=== PATIENT | male | born 1995 | race African-American/Black ===

== ENCOUNTER 2016-06-03 02:36 | Emergency (ER) | payer OTHER ==
[2016-02-12 12:06] VITALS: BP 126/61
[2016-06-03] MEDS ORDERED: IBUP-1007 PO (03:24)
--- NOTE | 2016-06-03 03:24 | PHYS DOC ---
Past Medical History Past Medical History: Other Additional Past Medical Histor: seasonal allergies Past Surgical History: Other Additional Past Surgical Histo: abd hernia repair Alcohol Use: None Drug Use: None Adult General Chief Complaint Chief Complaint: Congestion HPI HPI Patient is a 20 year old male who presents here today complaining of chest pain and a whitish greenish productive cough for 2 days. Patient reports she been nauseous with occasional vomiting. Patient has any fevers shakes chills. Patient denies any abdominal pain. Patient has a dysuria frequency or urgency. Patient has no past medical history is otherwise healthy. Patient's physical exam was unremarkable. Patient's lungs were clear with no wheezing rales or rhonchi. Patient's abdomen was soft nontender. Patient's oropharynx was normal without any erythema or exudates. Patient's TMs are clear. Producible tenderness to palpation to his mid sternum. Patient reports his whole family has the same type symptoms. Review of Systems Review of Systems Constitutional: Denies fever or chills [] Eyes: Denies change in visual acuity, redness, or eye pain [] All other review systems are negative except as documented in the history of present illness portion. Allergies Allergies Allergies Coded Allergies Type Severity Reaction Last Updated Verified No Known Drug Allergies 02/12/16 No Physical Exam Physical Exam Constitutional: Well developed, well nourished, no acute distress, non-toxic appearance. [] HENT: Normocephalic, atraumatic, bilateral external ears normal, oropharynx moist, no oral exudates, nose normal. [] Eyes: PERRLA, EOMI, conjunctiva normal, no discharge. [] Neck: Normal range of motion, no tenderness, supple, no stridor. [] Cardiovascular:Heart rate regular rhythm, no murmur [] Lungs & Thorax: Bilateral breath sounds clear to auscultation tenderness to palpation to his anterior chest wall. [] Abdomen: Bowel sounds normal, soft, no tenderness, no masses, no pulsatile masses. [] Skin: Warm, dry, no erythema, no rash. [] Back: No tenderness, no CVA tenderness. [] Extremities: No tenderness, no cyanosis, no clubbing, ROM intact, no edema. [] Neurologic: Alert and oriented X 3, normal motor function, normal sensory function, no focal deficits noted. [] Psychologic: Affect normal, judgement normal, mood normal. [] EKG EKG [] Radiology/Procedures Radiology/Procedures [] Impressions: Patient presents with likely viral illness with pleurisy. Patient discharged home with ibuprofen rest liquids. Patient does not present with signs and symptoms concerning for influenza. Course & Med Decision Making Course & Med Decision Making Pertinent Labs and Imaging studies reviewed. (See chart for details) [] Dragon Disclaimer Dragon Disclaimer This electronic medical record was generated, in whole or in part, using a voice recognition dictation system. Departure Departure Impression: Primary Impression: Upper respiratory infection Additional Impression: Pleurisy Disposition: HOME, SELF-CARE Condition: IMPROVED Referrals: JUVE STINSON (PCP) Patient Instructions: Upper Respiratory Infection, Adult Scripts Ibuprofen 600 Mg [id number] Mg PO PRN Q6HRS PRN INFLAMMATION #20 TAB Prov:RAMSEY TRIPP MD 06/03/16 Problem Qualifiers RAMSEY TRIPP MD Jun 03, 2016 03:24
[2016-06-03] MEDS ORDERED: IBUPROFEN 600 MG TABLET. PO ONE (04:00)
== END 2016-06-03 03:38 | disposition home or self-care (01) ==
LOC: ER 02:36
DX: J06.9 Acute upper respiratory infection, unspecified (principal); R09.1 Pleurisy
CPT/HCPCS: 99282

== ENCOUNTER 2016-11-22 15:46 | Emergency (ER) | payer OTHER ==
[~2016-11-22 15:46] MED LIST: IBUP-1007 PO
[2016-11-22 16:02] VITALS: BP 141/82
--- NOTE | 2016-11-22 16:19 | RAD ---
Ankle plain films Indication: 21-year-old male with pain in the left ankle status post fall and twisting. Technique: 3 views of the left ankle Comparison: None Findings: No acute fracture or dislocation. Ankle mortise is intact. No soft tissue abnormality. Impression: No acute fracture or dislocation.
[2016-11-22] MEDS ORDERED: TRAM-48 PO (16:33)
--- NOTE | 2016-11-22 16:34 | PHYS DOC ---
Past Medical History Past Medical History: Other Additional Past Medical Histor: seasonal allergies Past Surgical History: Other Additional Past Surgical Histo: abd hernia repair Alcohol Use: None Drug Use: None Adult General Chief Complaint Chief Complaint: ANKLE PROBLEM HPI HPI Patient is a 21 year old male who presents with left medial anterior and lateral ankle pain that began this morning when he was acting like a Katie trying to kick a ceiling fan. He states he twisted his left ankle. Patient states his pain is moderate worse on ambulation. Patient denies any loss of consciousness. Review of Systems Review of Systems Constitutional: Denies fever or chills [] Musculoskeletal: Left ankle pain Integument: Denies rash or skin lesions [] Neurologic: Denies headache, focal weakness or sensory changes [] Allergies Allergies Allergies Coded Allergies Type Severity Reaction Last Updated Verified No Known Drug Allergies 02/12/16 No Physical Exam Physical Exam Constitutional: Well developed, well nourished, no acute distress, non-toxic appearance. [] Skin: Warm, dry, no erythema, no rash. [] Back: No tenderness, no CVA tenderness. [] Extremities: Left ankle with mild soft tissue swelling. Tenderness diffusely throughout the ankle. Full range of motion. +2 left pedal pulse. Cap refill less than 2 seconds left toes. Sensation intact to the left lower extremity. Neurologic: Alert and oriented X 3, normal motor function, normal sensory function, no focal deficits noted. [] Psychologic: Affect normal, judgement normal, mood normal. [] Current Patient Data Vital Signs Vital Signs Date Time Temp Pulse Resp B/P (MAP) Pulse Ox O2 Delivery O2 Flow Rate FiO2 11/22/16 16:02 98.2 63 20 99 Room Air 98.2 EKG EKG [] Radiology/Procedures Radiology/Procedures [] Course & Med Decision Making Course & Med Decision Making Pertinent Labs and Imaging studies reviewed. (See chart for details) Patient is in the ED with left ankle pain after twisting the ankle. Left ankle x -rays interpreted by radiologist are negative for any acute findings. Patient probably has an ankle sprain. Aircast applied to the left ankle by the Ed RN, neurovascular exam done by me is normal. Ice elevation encouraged. Discharged with Ultram. Follow-up with orthopedic doctor in one week and continues. Provided crutches in the Ed. Dragon Disclaimer Dragon Disclaimer This electronic medical record was generated, in whole or in part, using a voice recognition dictation system. Departure Departure Impression: Primary Impression: Left ankle sprain Disposition: HOME, SELF-CARE Condition: STABLE Referrals: JUVE STINSON (PCP) ARELIS LÓPEZ II, MD Follow-up in one week Patient Instructions: Ankle Sprain Additional Instructions: You were seen for left ankle sprain. Wear the air cast provided as tolerated. Ice and elevate the extremity. Take the pain medicine provided as needed for pain. Follow up with the Orthopedic doctor provided in 1 week Scripts Tramadol Hcl (ULTRAM) 50 Mg Tablet 1 TAB PO Q6HRS, #30 TAB Prov: ARSENIO MORAN [employer] OPERATOR 11/22/16 Problem Qualifiers Primary Impression: Left ankle sprain Encounter type: initial encounter Involved ligament of ankle: unspecified ligament Qualified Codes: S93.402A - Sprain of unspecified ligament of left ankle, initial encounter ARSENIO MORAN C[employer] M[employer] OPERATOR Nov 22, 2016 16:34
[2016-11-22] MEDS ORDERED: HYDROcodone/APAP 5/325MG 1 TAB TABLET PO ONE (16:45)
[2016-11-22] MEDS ORDERED: NAPROXEN 500 MG TABLET PO STA (16:47)
== END 2016-11-22 16:53 | disposition home or self-care (01) ==
LOC: ER 15:46
DX: S93.402A Sprain of unspecified ligament of left ankle, initial encounter (principal); X50.9XXA Other and unspecified overexertion or strenuous movements or postures, initial encounter; Y93.89 Activity, other specified; Y99.8 Other external cause status; Y92.89 Other specified places as the place of occurrence of the external cause
CPT/HCPCS: 73610; 99284

== ENCOUNTER 2018-07-21 12:31 | Emergency (ER) | payer MEDICAID, OTHER ==
[~2018-07-21] VITALS: Ht 177.8 cm; Wt 117.9 kg
[~2018-07-21 12:31] MED LIST changes: +TRAM-48 PO
[2018-07-21 12:40] VITALS: BP 166/91
[2018-07-21] MEDS ORDERED: DIPHTH,PERTUSS(ACELL),TET TOX 0.5 ML DISP.SYRIN. VAX IM ONE (12:45)
[2018-07-21] MEDS ORDERED: HYDROcodone/APAP 5/325MG 1 TAB TABLET PO ONE (12:45)
[2018-07-21] MEDS ORDERED: SMZ/TMP 800/160MG TABLET. PO ONE (12:45)
[2018-07-21] MEDS ORDERED: HYDR-3164 PO (13:04)
[2018-07-21] MEDS ORDERED: SULF1TAB23 PO (13:04)
[2018-07-21] MEDS ORDERED: CLIN30GE12 TP (13:04)
--- NOTE | 2018-07-21 13:05 | PHYS DOC ---
Past Medical History Past Medical History: Asthma, Other Additional Past Medical Histor: seasonal allergies Past Surgical History: Other Additional Past Surgical Histo: abd hernia repair Alcohol Use: None Drug Use: None Adult General Chief Complaint Chief Complaint: ABSCESS HPI HPI Patient is a 23 year old male who presents with left buttock abscess that began a week ago. Patient states his been keeping the area clean. Patient denies any fever. Denies any previous history of abscess. He states is currently trying clindamycin topical from an old prescription that he has had for a long time that could be helping with it. He is requesting we don't cut it open. Review of Systems Review of Systems Constitutional: Denies fever or chills [] Musculoskeletal: Denies back pain or joint pain [] Integument: Left buttock abscess. Neurologic: Denies headache, focal weakness or sensory changes [] All other systems were reviewed and found to be within normal limits, except as documented in this note. Current Medications Current Medications Current Medications Medications (Trade) Dose Ordered Sig/Adore Start Time Stop Time Status Last Admin Dose Admin Acetaminophen/ Hydrocodone Bitart (Lortab 5/325) 2 tab 1X ONCE 07/21/18 12:45 07/21/18 12:48 DC 07/21/18 12:55 2 TAB Diphtheria/ Tetanus/Acell Pertussis (Boostrix) 0.5 ml ONCE ONCE 07/21/18 12:45 07/21/18 12:48 DC 07/21/18 12:56 0.5 ML Trimethoprim/ Sulfamethoxazole (Bactrim Ds) 1 tab 1X ONCE 07/21/18 12:45 07/21/18 12:48 DC 07/21/18 12:55 1 TAB Allergies Allergies Allergies Coded Allergies Type Severity Reaction Last Updated Verified No Known Drug Allergies 02/12/16 No Physical Exam Physical Exam Constitutional: Well developed, well nourished, no acute distress, non-toxic appearance. [] Skin: left inner buttock with a non indurated area approx. 3X2 cm, the area is firm, TTP, warm and has no fluctuance. No erythema Back: No tenderness, no CVA tenderness. [] Extremities: No tenderness, no cyanosis, no clubbing, ROM intact, no edema. [] Neurologic: Alert and oriented X 3, normal motor function, normal sensory function, no focal deficits noted. [] Psychologic: Affect normal, judgement normal, mood normal. [] Current Patient Data Vital Signs Vital Signs Date Time Temp Pulse Resp B/P (MAP) Pulse Ox O2 Delivery O2 Flow Rate FiO2 07/21/18 12:40 99.1 100 18 166/91 (116) 99 Room Air 99.1 EKG EKG [] Radiology/Procedures Radiology/Procedures [] Course & Med Decision Making Course & Med Decision Making Pertinent Labs and Imaging studies reviewed. (See chart for details) Patient is an abscess of the left inner buttock, I offered to drain it, he refused completely, D/c with Bactrim. He requested a prescription for topical clindamycin which he was using from a previous prescription, Rx was given. Tetanus updated. Warm compresses recommended to the area. Follow-up with general surgery Dragignacio Disclaimer Dragignacio Disclaimer This electronic medical record was generated, in whole or in part, using a voice recognition dictation system. Departure Departure Impression: Primary Impression: Left buttock abscess Disposition: HOME, SELF-CARE Condition: STABLE Referrals: JUVE STINSON (PCP) YAYA CASTRO MD follow up in one week Patient Instructions: Abscess Additional Instructions: You have the left buttock abscess. Please apply warm compresses to the area twice a day. Take the prescribed antibiotics until completed. Follow up with the provide general surgeon in 1 week. Scripts Clindamycin/Tretinoin (ZIANA GEL) 30 Gm Gel..gram. 1 FREDIS TP QHS, #60 GM 2 Refills Prov: ARSENIO MORAN APRN 07/21/18 Hydrocodone/Apap 5-325 (NORCO 5-325 TABLET) 1 Each Tablet 1 TAB PO Q6HRS, #20 TAB Prov: ARSENIO MORAN APRN 07/21/18 Sulfamethoxazole/Trimethoprim (BACTRIM 400-80 MG TABLET) 1 Each Tablet 1 TAB PO BID, #20 TAB Prov: ARSENIO MORAN APRN 07/21/18 ARSENIO MORAN APRN Jul 21, 2018 13:04
== END 2018-07-21 13:36 | disposition home or self-care (01) ==
LOC: ER 12:31
DX: L02.31 Cutaneous abscess of buttock (principal); J45.909 Unspecified asthma, uncomplicated
CPT/HCPCS: 90471; 90715; 99283

== ENCOUNTER 2018-12-12 21:01 | Emergency (ER) | payer MEDICAID, OTHER ==
[~2018-12-12] VITALS: Ht 177.8 cm; Wt 117.9 kg
[~2018-12-12 21:01] MED LIST changes: +CLIN30GE12 TP; +HYDR-3164 PO; +SULF1TAB23 PO
[2018-12-12 21:59] VITALS: BP 153/83
[2018-12-12] MEDS ORDERED: FLUT9.9S NS (22:02)
[2018-12-12] MEDS ORDERED: CETI10TA16 PO (22:02)
[2018-12-12] MEDS ORDERED: MONT10TA49 PO (22:02)
--- NOTE | 2018-12-12 22:03 | PHYS DOC ---
Past Medical History Past Medical History: Asthma, Other Additional Past Medical Histor: seasonal allergies Past Surgical History: Other Additional Past Surgical Histo: abd hernia repair, inguinal hernia repair Smoking: Cigarettes, 1 Pack Per Day Alcohol Use: Rarely Drug Use: None Adult General Chief Complaint Chief Complaint: Congestion HPI HPI Patient is a 23 year old AA male who presents to the ER with complaints of increased nasal congestion and productive cough with green sputum for the last 4 days. Pt states he needs refills of his singulair and loratidine. Pt states he doesn't think his allergy medicine is helping him anymore. He rates his discomfort a 10/10 on the pain scale. Review of Systems Review of Systems Constitutional: Denies fever or chills [] Eyes: Denies change in visual acuity, redness, or eye pain [] HENT: denies sore throat or ear pain, see HPI Respiratory: Denies wheezing or shortness of breath; see HPI Cardiovascular: No additional information not addressed in HPI [] GI: Denies abdominal pain, or diarrhea; reports post-tussive emesis x2 today Musculoskeletal: Denies back pain or joint pain [] Integument: Denies rash or skin lesions [] Neurologic: Denies headache Complete systems were reviewed and found to be within normal limits, except as documented in this note. Allergies Allergies Allergies Coded Allergies Type Severity Reaction Last Updated Verified No Known Drug Allergies 02/12/16 No Physical Exam Physical Exam Constitutional: Well developed, well nourished, no acute distress, non-toxic appearance, obese [] HENT: Normocephalic, atraumatic, bilateral external ears normal, bilateral TMs normal, cobblestone appearance of posterior pharynx with visible post-nasal drainage, oropharynx moist, no oral exudates, nasal turbinates edematous and erythematous bilat, no maxillary or frontal sinus TTP Eyes: PERRLA, EOMI, conjunctiva normal, no discharge. [] Neck: Normal range of motion, no tenderness, supple, no stridor. [] Cardiovascular:Heart rate regular rhythm, no murmur [] Lungs & Thorax: Bilateral breath sounds clear to auscultation, no wheezing, no retractions [] Skin: Warm, dry, no erythema, no rash. [] Back: No tenderness Extremities: No cyanosis, ROM intact, no edema. [] Neurologic: Alert and oriented X 3, no focal deficits noted. [] Psychologic: Affect normal, judgement normal, mood normal. [] EKG EKG [] Radiology/Procedures Radiology/Procedures [] Course & Med Decision Making Course & Med Decision Making Pertinent Labs and Imaging studies reviewed. (See chart for details) dx: Allergic rhinitis with postnasal drainage, allergic cough Prescriptions written for Zyrtec, Flonase, and Singulair Avoid airway triggers. stop smoking Patient verbalized an understanding of home care, medications, follow-up, and return to ED instructions and was in agreement with the plan of care. [] Dragon Disclaimer Dragon Disclaimer This electronic medical record was generated, in whole or in part, using a voice recognition dictation system. Departure Departure Impression: Primary Impression: Allergic rhinitis with postnasal drip Additional Impression: Allergic cough Disposition: HOME, SELF-CARE Referrals: JUVE STINSON (PCP) Patient Instructions: Allergic Rhinitis, Cough, Adult, [id number] Additional Instructions: Fill the prescription(s) and use as directed. STOP SMOKING. You may take Tylenol or ibuprofen as needed for pain/fever. Increase clear fluids. Avoid triggers such as smoke, fragrance, dust, and pollen. You may take [id number] cough suppressants as needed. Follow-up with your primary care doctor if symptoms persist, return to the ER if symptoms worsen. Scripts Fluticasone Propionate (Flonase Allergy Relief) 9.9 Ml [place].susp 2 SPRAYS NS DAILY for 30 Days, #1 BOTTLE 1 Refill Prov: ISRAEL SIEGEL APRN 12/12/18 Montelukast Sodium (SINGULAIR TABLET ) 10 Mg Tablet 10 MG PO DAILY for FOR ASTHMA for 30 Days, #30 TAB 1 Refill Prov: ISRAEL SIEGEL APRN 12/12/18 Cetirizine Hcl (CETIRIZINE HCL) 10 Mg Tablet 1 TAB PO HS for 30 Days, #30 TAB 1 Refill Prov: ISRAEL SIEGEL APRN 12/12/18 Problem Qualifiers ISRAEL SIEGEL APRN Dec 12, 2018 22:03
== END 2018-12-12 22:13 | disposition home or self-care (01) ==
LOC: ER 21:01
DX: J30.9 Allergic rhinitis, unspecified (principal); R11.10 Vomiting, unspecified; F17.210 Nicotine dependence, cigarettes, uncomplicated
CPT/HCPCS: 99283

== ENCOUNTER 2020-04-26 01:29 | Emergency (ER) | payer OTHER ==
[~2020-04-26] VITALS: Ht 177.8 cm; Wt 127.3 kg
[~2020-04-26 01:29] MED LIST changes: +CETI10TA16 PO; +FLUT9.9S NS; +MONT10TA49 PO
[2020-04-26] MEDS ORDERED: MORPHINE SULFATE 4 MG/ML VIAL. ONE (02:53)
[2020-04-26] MEDS ORDERED: MORPHINE SULFATE 4 MG/ML VIAL. IV ONE ×2 (03:00→05:15)
--- NOTE | 2020-04-26 03:04 | PHYS DOC ---
Past Medical History Past Medical History: Asthma, Other Additional Past Medical Histor: seasonal allergies Past Surgical History: Other Additional Past Surgical Histo: abd hernia repair, inguinal hernia repair Smoking Status: Current Some Day Smoker Alcohol Use: None Drug Use: None Adult General Chief Complaint Chief Complaint: ABSCESS HPI HPI Patient is a 24 year old male with no known past medical history presenting to emergency department complaining of new onset of leg swelling and pain for which he is concerned for an abscess. Patient states that approximately 1 year ago he had an issue with a swelling in the same area which required incision and drainage for an abscess. States that over the last 24 hours noted worsening swelling at the gluteal cleft also now is having pain and swelling that spreading into the left buttock. Denies any fever, chills, nausea or vomiting. Denies any injury to the area. Review of Systems Review of Systems Constitutional: Denies fever or chills [] Eyes: Denies change in visual acuity, redness, or eye pain [] HENT: Denies nasal congestion or sore throat [] Respiratory: Denies cough or shortness of breath [] Cardiovascular: No additional information not addressed in HPI [] GI: Denies abdominal pain, nausea, vomiting, bloody stools or diarrhea [] : Denies dysuria or hematuria [] Musculoskeletal: Denies back pain or joint pain [] Integument: Denies rash or skin lesions [] Neurologic: Denies headache, focal weakness or sensory changes [] Endocrine: Denies polyuria or polydipsia [] All other systems were reviewed and found to be within normal limits, except as documented in this note. Current Medications Current Medications Current Medications Medications (Trade) Dose Ordered Sig/Adore Start Time Stop Time Status Last Admin Dose Admin Info (CONTRAST GIVEN -- Rx MONITORING) 1 each PRN DAILY PRN 04/26/20 04:45 04/28/20 04:44 Iohexol (Omnipaque 300 Mg/ml) 75 ml 1X ONCE 04/26/20 04:45 04/26/20 04:46 DC 04/26/20 04:58 75 ML Ketorolac Tromethamine (Toradol 15mg Vial) 15 mg 1X ONCE 04/26/20 05:15 04/26/20 05:17 DC 04/26/20 05:25 15 MG Lidocaine/ Epinephrine (LIDOCAINE 2%-EPI 1:100,000 multi-dose) 20 ml STK-MED ONCE 04/26/20 05:31 04/26/20 05:31 DC Morphine Sulfate (Morphine Sulfate) 4 mg 1X ONCE 04/26/20 05:15 04/26/20 05:17 DC 04/26/20 05:26 4 MG Allergies Allergies Allergies Coded Allergies Type Severity Reaction Last Updated Verified No Known Drug Allergies 02/12/16 No Physical Exam Physical Exam Constitutional: Well developed, well nourished, no acute distress, non-toxic appearance. [] HENT: Normocephalic, atraumatic, bilateral external ears normal, oropharynx moist, no oral exudates, nose normal. [] Eyes: PERRLA, EOMI, conjunctiva normal, no discharge. [] Neck: Normal range of motion, no tenderness, supple, no stridor. [] Cardiovascular:Heart rate regular rhythm, no murmur [] Lungs & Thorax: Bilateral breath sounds clear to auscultation [] Abdomen: Bowel sounds normal, soft, no tenderness, no masses, no pulsatile masses. [] Skin: Severe swelling and induration and primarily in the superior gluteal cleft over the left margin however there is also significant induration pain and swelling over the left buttock and what appears to be the gluteal muscle. Back: No tenderness, no CVA tenderness. [] Extremities: No tenderness, no cyanosis, no clubbing, ROM intact, no edema. [] Neurologic: Alert and oriented X 3, normal motor function, normal sensory function, no focal deficits noted. [] Psychologic: Affect normal, judgement normal, mood normal. [] Current Patient Data Vital Signs Vital Signs Date Time Temp Pulse Resp B/P (MAP) Pulse Ox O2 Delivery O2 Flow Rate FiO2 04/26/20 05:26 16 98 Room Air 04/26/20 01:30 98.0 90 151/65 (93) 98.0 Lab Values Laboratory Tests Test 04/26/20 01:23 White Blood Count 8.7 x10^3/uL (4.0-11.0) Red Blood Count 5.02 x10^6/uL (4.30-5.70) Hemoglobin 13.3 g/dL (13.0-17.5) Hematocrit 40.3 % (39.0-53.0) Mean Corpuscular Volume 80 fL (79-100) Mean Corpuscular Hemoglobin 27 pg (25-35) Mean Corpuscular Hemoglobin Concent 33 g/dL (31-37) Red Cell Distribution Width 13.9 % (11.5-14.5) Platelet Count 163 x10^3/uL (140-400) Neutrophils (%) (Auto) 72 % (31-73) Lymphocytes (%) (Auto) 17 % (24-48) L Monocytes (%) (Auto) 9 % (0-9) Eosinophils (%) (Auto) 2 % (0-3) Basophils (%) (Auto) 0 % (0-3) Neutrophils # (Auto) 6.2 x10^3/uL (1.8-7.7) Lymphocytes # (Auto) 1.5 x10^3/uL (1.0-4.8) Monocytes # (Auto) 0.8 x10^3/uL (0.0-1.1) Eosinophils # (Auto) 0.2 x10^3/uL (0.0-0.7) Basophils # (Auto) 0.0 x10^3/uL (0.0-0.2) Sodium Level 143 mmol/L (136-145) Potassium Level 4.1 mmol/L (3.5-5.1) Chloride Level 104 mmol/L (98-107) Carbon Dioxide Level 30 mmol/L (21-32) Anion Gap 9 (6-14) Blood Urea Nitrogen 8 mg/dL (8-26) Creatinine 1.0 mg/dL (0.7-1.3) Estimated GFR (Cockcroft-Gault) 112.0 BUN/Creatinine Ratio 8 (6-20) Glucose Level 79 mg/dL (70-99) Calcium Level 9.1 mg/dL (8.5-10.1) Total Bilirubin 0.2 mg/dL (0.2-1.0) Aspartate Amino Transferase (AST) 21 U/L (15-37) Alanine Aminotransferase (ALT) 36 U/L (16-63) Alkaline Phosphatase 69 U/L (46-116) Total Protein 7.6 g/dL (6.4-8.2) Albumin 3.5 g/dL (3.4-5.0) Albumin/Globulin Ratio 0.9 (1.0-1.7) L Laboratory Tests 04/26/20 01:23 Laboratory Tests 04/26/20 01:23 EKG EKG [] Radiology/Procedures Radiology/Procedures [] Course & Med Decision Making Course & Med Decision Making Pertinent Labs and Imaging studies reviewed. (See chart for details) 24M presenting with appears to be a pilonidal cyst left which is large and indurated however there is also concern for an abscess within the left gluteal muscle or fistula. At this time will obtain basic labs and will obtain a CT of the pelvis to make sure there is no underlying abscess that require further surgical intervention. 0600 - completed I+D of gluteal abscess. CT without evidence of any additional abscess or infection. Patient tolerated well. Will discharge home. Dragon Disclaimer Dragon Disclaimer This electronic medical record was generated, in whole or in part, using a voice recognition dictation system. Departure Departure Impression: Primary Impression: Abscess, gluteal cleft Disposition: 01 DC HOME SELF CARE/HOMELESS Condition: GOOD Referrals: JUVE STINSON (PCP) Patient Instructions: Incision and Drainage, Care After Additional Instructions: EMERGENCY DEPARTMENT GENERAL DISCHARGE INSTRUCTIONS Thank you for coming to [facility] Emergency Department (ED) today and trusting us with you care. We trust that you had a positive experience in our Emergency Department. If you wish to speak to the department management, you may call the Director at [phone]. YOUR FOLLOW UP INSTRUCTIONS ARE FOLLOWS: 1. Do you have a private Doctor? If you do not have a private doctor, please ask for a resource list of physicians or clinics that may be able to assist you with follow up care. 2. The Emergency Physicain has interpreted your x-rays. The X-Ray specialist will also review them. If there is a change in the findings, you will be notified in 48 hours when at all possible. 3. A lab test or culture has been done, your results will be reviewed and you will be notified if you need a change in treatment. ADDITIONAL INSTRUCTIONS AND INFORMATION: 1. Your care today has been supervised by a physician who is specially trained in emergency care. Many problems require more than one evaluation for a complete diagnosis and treatment. We recommend that you schedule your follow up appointment as recommended to ensure complete treatment of you illness or injury. If you are unable to obtain follow up care and continue to have a problem, or if your condition worsens, we recommend that you return to the ED. 2. We are not able to safely determine your condition over the phone nor are we able to give sound medical advice over the phone. For these safety reasons, if you call for medical advice we will ask you to come to the ED for further evaluation. 3. If you have any questions regarding these discharge instructions please call the ED at [phone]. SAFETY INFORMATION: In the interest of safety, wellness, and injury prevention; we encourage you to wear your sealbelt, if you smoke; quite smoking, and we encourage family to use a protective helmet for bicycling and other sporting events that present an increased risk for head injury. IF YOUR SYMPTOMS WORSEN OR NEW SYMPTOMS DEVELOP, OR YOU HAVE CONCERNS ABOUT YOUR CONDITION; OR IF YOUR CONDITION WORSENS WHILE YOU ARE WAITING FOR YOUR FOLLOW UP APPOINTMENT; EITHER CONTACT YOUR PRIMARY CARE DOCTOR, THE PHYSICIAN WHOSE NAME AND NUMBER YOU WERE GIVEN, OR RETURN TO THE ED IMMEDIATELY. Incision and Drainage Indication: abscess Procedure: The patient was positioned appropriately. Local anesthesia was administered using 2% lidocaine with epi and 3 cc was administered several cutaneously. An incision was then made over the apex of the lesion and approximately 50 cc of purulent material was expressed. The drainage cavity was irrigated and packed with sterile gauze. The patients tetanus status updated as needed. The patient tolerated the procedure well. Complications: none. KATHY JADE MD Apr 26, 2020 03:04
[2020-04-26 03:39] LABS: BASO % 0 % (0-3); EOS # 0.2 x10^3/uL (0.0-0.7); EOS % 2 % (0-3); HEMATOCRIT 40.3 % (39.0-53.0); HEMOGLOBIN 13.3 g/dL (13.0-17.5); LYMPH # 1.5 x10^3/uL (1.0-4.8); LYMPH % 17 % (24-48); MEAN CORPUSCULAR HEMOGLOBIN 27 pg (25-35); MEAN CORPUSCULAR HGB CONC 33 g/dL (31-37); MEAN CORPUSCULAR VOLUME 80 fL (79-100); MONO # 0.8 x10^3/uL (0.0-1.1); MONO % 9 % (0-9); NEUT # 6.2 x10^3/uL (1.8-7.7); NEUT % 72 % (31-73); PLATELET COUNT 163 x10^3/uL (140-400); RED BLOOD COUNT 5.02 x10^6/uL (4.30-5.70); RED CELL DISTRIBUTION WIDTH 13.9 % (11.5-14.5); WHITE BLOOD COUNT 8.7 x10^3/uL (4.0-11.0)
[2020-04-26 04:18] LABS: ALBUMIN 3.5 g/dL (3.4-5.0); ALBUMIN/GLOBULIN RATIO 0.9 (1.0-1.7); CALCIUM 9.1 mg/dL (8.5-10.1); POTASSIUM 4.1 mmol/L (3.5-5.1); TOTAL BILIRUBIN 0.2 mg/dL (0.2-1.0); TOTAL PROTEIN 7.6 g/dL (6.4-8.2)
[2020-04-26] MEDS ORDERED: IOHEXOL 300 MG/ML 100ML VIAL. IV ONE (04:45)
[2020-04-26] MEDS ORDERED: CONTRAST GIVEN. MC PRN (04:45)
--- NOTE | 2020-04-26 05:08 | RAD ---
EXAMINATION: CT PELVIS W, 04/26/2020 4:29 AM CLINICAL INDICATION: Pelvic abscess COMPARISON: None TECHNIQUE: Helical CT imaging performed of the pelvis after administration of 75 mL Omnipaque 300 int ravenous contrast. Sagittal and coronal reformats were obtained. One or more of the following individualized dose reduction techniques were utilized for this examinat ion: 1. Automated exposure control 2. Adjustment of the mA and/or kV according to patient size 3. Use of iterative reconstruction technique. FINDINGS: There is a peripherally enhancing subcutaneous abscess along the gluteal cleft on the left measuring 4.4 x 3.0 x 1.8 cm. There is mild surrounding subcutaneous fat stranding. No extension to t he sacrum or coccyx. Visualized pelvic contents are normal. No acute osseous abnormality. IMPRESSION: 4.4 cm subcutaneous abscess along the gluteal cleft on the left. Electronically signed by: Mildred Lezama MD (04/26/2020 5:05 AM) [id number]
[2020-04-26] MEDS ORDERED: KETOROLAC 15 MG/ML VIAL. IVP ONE (05:15)
[2020-04-26] MEDS ORDERED: LIDOCAINE 2%/EPI 1:100,000 20 ML VIAL. INJ ONE (05:30)
[2020-04-26] MEDS ORDERED: LIDOCAINE 2%/EPI 1:100,000 20 ML VIAL. ONE (05:31)
[2020-04-26 05:34] VITALS: BP 130/62
[2020-04-26] MEDS ORDERED: DIPH,PERTUSS(ACELL),TET VAC/PF 0.5 ML SYRINGE. VAX IM ONE (06:15)
[2020-04-26] MEDS ORDERED: OXYC-325 PO (06:28)
== END 2020-04-26 06:38 | disposition home or self-care (01) ==
LOC: ER 01:29
DX: L02.31 Cutaneous abscess of buttock (principal); J45.909 Unspecified asthma, uncomplicated; F17.200 Nicotine dependence, unspecified, uncomplicated
CPT/HCPCS: 10060; 36415; 72193; 80053; 85025; 90471; 90715; 96374; 96375; 96376; 99285; J1885; J2270; J3490; Q9967; 99282

== ENCOUNTER 2020-04-28 18:59 | Emergency (ER) | payer OTHER ==
[~2020-04-28] VITALS: Ht 177.8 cm; Wt 136.0 kg
[~2020-04-28 18:59] MED LIST changes: +OXYC-325 PO
--- NOTE | 2020-04-28 19:16 | PHYS DOC ---
Past Medical History Past Medical History: Asthma, Other Additional Past Medical Histor: seasonal allergies Past Surgical History: Other Additional Past Surgical Histo: abd hernia repair, inguinal hernia repair Smoking Status: Current Some Day Smoker Alcohol Use: None Drug Use: None Adult General Chief Complaint Chief Complaint: WOUND CHECK [facility] HPI Patient is a 24 year old male presenting to the emergency department for wound check for recently drained pilonidal cyst. Patient states that he has been able to manage it appropriately. Denies any return of fever or pain. Review of Systems Review of Systems Constitutional: Denies fever or chills [] Eyes: Denies change in visual acuity, redness, or eye pain [] HENT: Denies nasal congestion or sore throat [] Respiratory: Denies cough or shortness of breath [] Cardiovascular: No additional information not addressed in HPI [] GI: Denies abdominal pain, nausea, vomiting, bloody stools or diarrhea [] : Denies dysuria or hematuria [] Musculoskeletal: Denies back pain or joint pain [] Integument: Denies rash or skin lesions [] Neurologic: Denies headache, focal weakness or sensory changes [] Endocrine: Denies polyuria or polydipsia [] All other systems were reviewed and found to be within normal limits, except as documented in this note. Allergies Allergies Allergies Coded Allergies Type Severity Reaction Last Updated Verified No Known Drug Allergies 02/12/16 No Physical Exam Physical Exam Constitutional: Well developed, well nourished, no acute distress, non-toxic appearance. [] HENT: Normocephalic, atraumatic, bilateral external ears normal, oropharynx moist, no oral exudates, nose normal. [] Eyes: PERRLA, EOMI, conjunctiva normal, no discharge. [] Neck: Normal range of motion, no tenderness, supple, no stridor. [] Cardiovascular:Heart rate regular rhythm, no murmur [] Lungs & Thorax: Bilateral breath sounds clear to auscultation [] Abdomen: Bowel sounds normal, soft, no tenderness, no masses, no pulsatile masses. [] Skin: Warm, dry, no erythema, no rash. Posterior pilonidal cyst with a small amount of purulence but otherwise appears to be healing well with no surrounding erythema. Back: No tenderness, no CVA tenderness. [] Extremities: No tenderness, no cyanosis, no clubbing, ROM intact, no edema. [] Neurologic: Alert and oriented X 3, normal motor function, normal sensory function, no focal deficits noted. [] Psychologic: Affect normal, judgement normal, mood normal. [] EKG EKG [] Radiology/Procedures Radiology/Procedures [] Course & Med Decision Making Course & Med Decision Making Pertinent Labs and Imaging studies reviewed. (See chart for details) 24M previously cleaned pilonidal cyst now here for her dressing change. Evaluation wound does appear to be healing well. At this time will repack with iodoform gauze and find out the patient perform dressing change in 40 Dragon Disclaimer Dragon Disclaimer This electronic medical record was generated, in whole or in part, using a voice recognition dictation system. Departure Departure Impression: Primary Impression: Pilonidal abscess of cleft Disposition: 01 DC HOME SELF CARE/HOMELESS Condition: GOOD Referrals: UNKNOWN PCP NAME (PCP) Patient Instructions: Pilonidal Cyst Additional Instructions: EMERGENCY DEPARTMENT GENERAL DISCHARGE INSTRUCTIONS Thank you for coming to [facility] Emergency Department (ED) today and trusting us with you care. We trust that you had a positive experience in our Emergency Department. If you wish to speak to the department management, you may call the Director at [phone]. YOUR FOLLOW UP INSTRUCTIONS ARE FOLLOWS: 1. Do you have a private Doctor? If you do not have a private doctor, please ask for a resource list of physicians or clinics that may be able to assist you with follow up care. 2. The Emergency Physicain has interpreted your x-rays. The X-Ray specialist will also review them. If there is a change in the findings, you will be notified in 48 hours when at all possible. 3. A lab test or culture has been done, your results will be reviewed and you will be notified if you need a change in treatment. ADDITIONAL INSTRUCTIONS AND INFORMATION: 1. Your care today has been supervised by a physician who is specially trained in emergency care. Many problems require more than one evaluation for a complete diagnosis and treatment. We recommend that you schedule your follow up appointment as recommended to ensure complete treatment of you illness or injury. If you are unable to obtain follow up care and continue to have a problem, or if your condition worsens, we recommend that you return to the ED. 2. We are not able to safely determine your condition over the phone nor are we able to give sound medical advice over the phone. For these safety reasons, if you call for medical advice we will ask you to come to the ED for further evaluation. 3. If you have any questions regarding these discharge instructions please call the ED at [phone]. SAFETY INFORMATION: In the interest of safety, wellness, and injury prevention; we encourage you to wear your sealbelt, if you smoke; quite smoking, and we encourage family to use a protective helmet for bicycling and other sporting events that present an increased risk for head injury. IF YOUR SYMPTOMS WORSEN OR NEW SYMPTOMS DEVELOP, OR YOU HAVE CONCERNS ABOUT YOUR CONDITION; OR IF YOUR CONDITION WORSENS WHILE YOU ARE WAITING FOR YOUR FOLLOW UP APPOINTMENT; EITHER CONTACT YOUR PRIMARY CARE DOCTOR, THE PHYSICIAN WHOSE NAME AND NUMBER YOU WERE GIVEN, OR RETURN TO THE ED IMMEDIATELY. KATHY JADE MD Apr 28, 2020 19:16
[2020-04-28 19:26] VITALS: BP 125/82
[2020-04-28] MEDS ORDERED: ACETAMINOPHEN 500 MG TABLET PO ONE (19:45)
== END 2020-04-28 19:50 | disposition home or self-care (01) ==
LOC: ER 18:59
DX: L05.01 Pilonidal cyst with abscess (principal); J45.909 Unspecified asthma, uncomplicated; Z98.890 Other specified postprocedural states; Z87.891 Personal history of nicotine dependence
CPT/HCPCS: 99282